=== PATIENT | female | born 1965 | race Caucasian/White ===

== ENCOUNTER 2016-08-10 23:38 | Emergency (ER) | payer OTHER ==
[~2016-08-10] VITALS: Ht 162.6 cm; Wt 67.3 kg
[~2016-08-10 23:38] MED LIST: CITA20TA PO; GABA-502 PO; HYDR50CA3 PO; KETO5DRO68 OP; LORA1TAB PO; METF1000 PO; OMEP20TA86 PO; SIMV40TA5 PO; ZOLP5TAB6 PO
[2016-08-10 23:42] VITALS: BP 138/83; PULSE 89; RESP 16; O2SAT 98
--- NOTE | 2016-08-11 01:02 | ED.REPORT ---
HPI-General Illness Date of Service Aug 11, 2016 ED Provider: Gasper Espinoza MD Patient is a 51 year old female with a history of depression, pancreatitis, alcohol abuse, withdrawal seizures and prior detox who presents to the ED requesting medical clearance for [facility]. She reports that she normally drinks a six pack of 16 ounce tall boys with 3 shots of whiskey daily but hasn' t had a drink in the past 24 hours. Associated symptoms include restlessness, shakiness, and diaphoresis. The patient also experiences withdrawal seizures but has not experienced them for the past five months. She is not currently experiencing withdrawal seizures. The patient hasn't been able to attend AA meetings or maintain her sobriety and feels unstable. The patient has been through detox before and was sober for one month. Prior to arrival to the ED, the patient took Hydroxyzine. Nursing Notes Stated Complaint: CRISIS Chief Complaint: Substance Abuse Nursing Notes Reviewed: Yes Allergies: Coded Allergies: No Known Allergies (Unverified Allergy, Unknown, 08/10/16) Scheduled Citalopram Hydrobromide (Celexa) 20 Mg Tablet 20 MG PO DAILY Gabapentin (Gabapentin) 300 Mg Capsule 300 MG PO BID Ketotifen Fumarate (Zaditor) 5 Ml Drops 2 DROP OP Q12 Metformin (Glucophage) 1,000 Mg Tablet 1,000 MG PO BID Omeprazole (Omeprazole) 20 Mg Tablet.dr 20 MG PO DAILY Simvastatin (Simvastatin) 40 Mg Tablet 40 MG PO HS Scheduled PRN Hydroxyzine Pamoate (HydrOXYzine Pamoate) 50 Mg Capsule 50 MG PO BID PRN PRN For Itching Lorazepam (Lorazepam) 1 Mg Tablet 1 MG PO BID PRN PRN Withdrawal Symptoms Zolpidem (Zolpidem) 5 Mg Tablet 5 MG PO HS PRN PRN For Insomnia General Time Seen by MD: 00:28 Chief Complaint Medical clearance Hx Obtained From: Patient Arrived By: Walk-in Sudden in Onset?: No Context of Onset: EtOH use Recent Healthcare: No recent doctor visit, No recent hospitalization Similar Sx Previous: Yes Past Medical History Past Medical History pancreatitis Insomnia anxiety withdrawal seizures prior detox attempts alcohol abuse Reports: Diabetes mellitus, Hyperlipidemia Past Surgical History Reports: Smoking History Current Every Day Smoker Social History multiple DUIs Alcohol Use: >5 per day Drug Use: Denies drug use Ambulatory Status Independent Review of Systems shaky restless Full Review of Systems Respiratory: Denies: Non-productive cough, Shortness of breath Skin: Reports Diaphoresis Neurologic: Denies: Seizure Complete sys rev & neg: except as marked. Physical Exam Vital Signs Vital Signs Date Time Temp Pulse Resp B/P Pulse Ox O2 Delivery O2 Flow Rate FiO2 08/11/16 02:16 36.9 90 17 128/80 99 Room Air 08/10/16 23:42 37.2 89 16 138/83 98 Room Air Initial VS: Reviewed General/Constitutional: Awake, Alert, No acute distress peripheral thinness Head / Eyes: Atraumatic, Normocephalic, PERRL, EOMI chronic facial palsy ENT: Atraumatic, Airway patent, Mucous membranes moist Neck: Atraumatic, Supple, Full range of motion Respiratory / Chest: Atraumatic, Breath sounds NL, Breath sounds = bilat, No respiratory distress Cardiovascular: Heart rate NL, Regular rhythm, Heart sounds NL Abdomen: Atraumatic, Soft, Non-tender liver edge is enlarged and firm Back: Atraumatic, Full range of motion Upper Extremities Upper Extremity / MS: Atraumatic, Full range of motion Lower Extremity / Pelvis / MS: Atraumatic, Full range of motion Skin: Atraumatic, Color NL, No rash, Warm, Dry Neurologic: Oriented X3, Speech NL, No motor deficits, No sensory deficits Psychiatric: Affect NL, Mood NL Interpretation & Diagnostics Lab Results Interpretation Test 08/11/16 00:30 Hold Urine Received (Received) Re-Eval/Medical Decision Med Decision/Clinical Course 51-year-old female with history of chronic alcoholism and prior detox efforts, presents now for medical clearance for crisis respite. She has been to crisis respite before, with a month of sobriety following. She is feeling that she needs to do this again to avoid destroying her health bilaterally. She is medically clear at this point for outpatient detox, with support via Ativan. She is without active liver disease or pancreatitis at this point. Transported with [facility] and the [facility] for outpatient detox. Source of Hx: Old records Time of Eval: 00:28 Re-Evaluation/Progress Note: Discussed plan for treatment and plan for discharge to Crisis during initial interview. Patient understands and agrees to the plan for treatment. All questions were addressed. Consultation : Call Returned at: 01:00 Note: Spoke with [facility] to confirm bed availability. Counseled Regarding: Diagnosis, Need for follow-up, When/why to return to ED Discharge & Departure Shift Change Sign-Out Response to Therapy: Improved Primary Impression: Alcohol abuse Additional Impression: Alcohol withdrawal Disposition: Home (crisis respite) Discharge Condition All VS Reviewed: Yes Condition: Stable Additional Instructions: Take your medicines as directed by staff. Follow-up with your doctor in the office. Return if any immediate issues. Follow-up with after care as arranged by staff. Good luck with your recovery. Referrals: [facility] Scribe Attestation Portions of this note were transcribed by Mahsa Wynn and Franck Bazzi. I, Dr. Espinoza personally performed the history, physical exam and medical decision -making; I reviewed and confirmed the accuracy of the information in the transcribed note. Signed by: Muna Townsend, 08/11/16 and 0133. copies to: [facility] Gasper Espinoza MD Aug 11, 2016 01:02 Sandy Wynn Aug 11, 2016 01:13 FRANCK BAZZI Aug 11, 2016 01:32
[2016-08-11] MEDS ORDERED: _LORazepam 2 MG Tablet PO SCH (01:15)
[2016-08-11] MEDS ORDERED: LORazepam 1 mg Tablet PO ONE (01:15)
[2016-08-11 02:16] VITALS: BP 128/80; PULSE 90; RESP 17; O2SAT 99
== END 2016-08-11 02:17 | disposition home or self-care (01) ==
LOC: SED 23:38
DX: F10.239 Alcohol dependence with withdrawal, unspecified (principal); E11.9 Type 2 diabetes mellitus without complications; E78.5 Hyperlipidemia, unspecified; F17.200 Nicotine dependence, unspecified, uncomplicated; Z79.84 Long term (current) use of oral hypoglycemic drugs